=== PATIENT | male | born 1960 | race American Indian/Alaskan Native ===

== ENCOUNTER 2020-02-06 11:45 | Emergency (ER) | payer MEDICARE ==
[2020-02-06 11:50] VITALS: BP 165/93
--- NOTE | 2020-02-06 12:53 | Emergency Department Report ---
Abscess Boil HPI - HPI Chief Complaint: Skin/Abscess/Foreign Body Stated Complaint: BOIL ON BUTTOCKS Time Seen by Provider: 02/06/20 12:36 Duration: 3 Days History: Yes Pain, Yes Purulent Drainage, No Fever, No Numbness, No Foreign Body, No Previous History, No Insect Bite HPI: There is a pleasant 59-year-old male presents the emergency department chief complaint of a draining abscess on his buttocks. Patient reports has been present for the past few days reports that it drained a large amount of purulent drainage yesterday and is starting to feel better but he wanted to have it checked. He does have a history of diabetes and hypertension. He denies any associated fever, chills, night sweats, headache, dizziness, blurry vision, nausea,, diarrhea, chest pain, shortness of breath. Home Medications: Previous Rx's Medication Instructions Recorded Last Taken Type HYDROcodone/APAP 5-325 [[place] 1 each PO Q8HR PRN #14 tablet 07/20/13 Unknown Rx 5/325 mg] Lisinopril/Hydrochlorothiazide 1 tab PO QDAY #30 tablet 07/20/13 Unknown Rx [Zestoretic 10-12.5 mg] Sulfamethoxazole/Trimethoprim 1 each PO BID #14 tablet 07/20/13 Unknown Rx [Bactrim Ds] metFORMIN [Glucophage] 500 mg PO BID #60 tablet 07/20/13 Unknown Rx Clindamycin [Clindamycin CAP] 300 mg PO Q8H #30 cap 02/06/20 Unknown Rx Allergies/Adverse Reactions: Allergies Allergy/AdvReac Type Severity Reaction Status Date / Time No Known Allergies Allergy Unverified 07/20/13 10:39 ED Review of Systems ROS: Stated complaint: BOIL ON BUTTOCKS Other details as noted in HPI Comment: All other systems reviewed and negative Constitutional: denies: chills, fever Eyes: denies: eye pain, eye discharge, vision change ENT: denies: ear pain, throat pain Respiratory: denies: cough, shortness of breath, wheezing Cardiovascular: denies: chest pain, palpitations Endocrine: no symptoms reported Gastrointestinal: denies: abdominal pain, nausea, diarrhea Genitourinary: denies: urgency, dysuria Musculoskeletal: denies: back pain, joint swelling, arthralgia Skin: as per HPI. denies: rash, lesions Neurological: denies: headache, weakness, paresthesias Psychiatric: denies: anxiety, depression Hematological/Lymphatic: denies: easy bleeding, easy bruising ED Past Medical Hx - Past Medical History Previous Medical History?: Yes Hx Hypertension: Yes Hx Diabetes: Yes - Surgical History Past Surgical History?: Yes Additional Surgical History: right forearm. torn ligament right leg. left foot surgery - Social History Smoking Status: Current Every Day Smoker Substance Use Type: None - Medications Home Medications: Home Medications Medication Instructions Recorded Confirmed Last Taken Type HYDROcodone/APAP 5-325 [[place] 1 each PO Q8HR PRN #14 tablet 07/20/13 Unknown Rx 5/325 mg] Lisinopril/Hydrochlorothiazide 1 tab PO QDAY #30 tablet 07/20/13 Unknown Rx [Zestoretic 10-12.5 mg] Sulfamethoxazole/Trimethoprim 1 each PO BID #14 tablet 07/20/13 Unknown Rx [Bactrim Ds] metFORMIN [Glucophage] 500 mg PO BID #60 tablet 07/20/13 Unknown Rx Clindamycin [Clindamycin CAP] 300 mg PO Q8H #30 cap 02/06/20 Unknown Rx ED Abscess Boil Physical Exam - Exam General: Vital signs noted. No distress. Alert and acting appropriately. Size: 2 cm Exam: Yes Normal Neurologic Exam, Yes Normal Circulation, No Tenderness, No Fluctuance, No Surrounding Cellulites/Erythema, No Lymphangitis, No Crepitation, No Heart Murmur Exam: There is no fluctuance, there is a small area of a previous abscess that appears to have drained. He did not feel any surrounding fluctuance, crepitus, induration or tenderness palpation. There is no edema or erythema. ED Course Vital Signs 02/06/20 11:49 Temperature 98.5 F Pulse Rate 68 Respiratory 16 Rate Blood Pressure 165/93 O2 Sat by Pulse 98 Oximetry Critical care attestation.: If time is entered above; I have spent that time in minutes in the direct care of this critically ill patient, excluding procedure time. ED Medical Decision Making - Medical Decision Making The patient's abscess had already drained. I did offer to give antibiotics and recommended warm compresses or sits baths 5 minutes every hour and follow-up with his primary care doctor. Due to the location of the abscess I do think this could be pilonidal and recommend to the patient this could be a recurrent abscess so I did refer him to a surgeon if this was to recur. He verbalized understand the diagnosis, treatment plan and follow-up instructions all his questions were answered. - Differential Diagnosis abscess, cellulitis, abrasion ED Disposition Clinical Impression: Abscess Disposition: DC-01 TO HOME OR SELFCARE Is pt being admited?: No Condition: Stable Instructions: Abscess (ED) Prescriptions: Clindamycin [Clindamycin CAP] 300 mg PO Q8H #30 cap Referrals: DANIAL BETH MD [Staff Physician] - 3-5 Days Time of Disposition: 12:51
== END 2020-02-06 13:36 | disposition home or self-care (01) ==
LOC: ED 11:45
DX: L02.31 Cutaneous abscess of buttock (principal); I10 Essential (primary) hypertension; E11.9 Type 2 diabetes mellitus without complications; F17.200 Nicotine dependence, unspecified, uncomplicated; Z98.890 Other specified postprocedural states; Z79.84 Long term (current) use of oral hypoglycemic drugs; Z79.2 Long term (current) use of antibiotics; Z79.899 Other long term (current) drug therapy
CPT/HCPCS: 99281

== ENCOUNTER 2020-06-02 07:09 | Emergency (ER) | payer MEDICARE ==
[2020-06-02] MEDS ORDERED: SODIUM CHLORIDE 0.9% 1000 ML 1,000 ML ONE (07:15)
[2020-06-02] MEDS ORDERED: ONDANSETRON 4 MG/2 ML INJ IV ONE (07:26)
[2020-06-02] MEDS ORDERED: SODIUM CHLORIDE 0.9% 1000 ML 1,000 ML IV ONE (07:26)
--- NOTE | 2020-06-02 07:41 | Emergency Department Report ---
ED GI Bleed HPI - General Chief complaint: GI Bleed Stated complaint: GI BLEED Time Seen by Provider: 06/02/20 07:26 Source: patient, EMS Mode of arrival: Stretcher Limitations: No Limitations - History of Present Illness Initial comments: Chief complaint: Weakness, blood in stool HPI: This is a 60-year-old male with history of hypertension and diabetes mellitus who presents with generalized weakness and bloody stools. Patient's called 911. EMS found patient sitting on toilet bent over. Blood was seen on toilet seat and on bathroom floor. EMS discovered blood in the toilet. Blood pressure on scene 90/50. En route patient received 1500 mL of saline. Patient does not have a history of GI bleed. Patient does not take aspirin or anticoagulants. He does not take ibuprofen. He drinks alcohol sparingly. He does smoke tobacco. MD complaint: gross hematochezia -: Sudden, This morning Severity scale (0 -10): 0 Quality: painless Consistency: other (Constant bloody stools) Improves with: none Worsens with: none Context: other (No previous history) Associated Symptoms: vomiting (1 episode of vomiting), other (Weakness) - Related Data Previous Rx's Medication Instructions Recorded Last Taken Type HYDROcodone/APAP 5-325 [[place] 1 each PO Q8HR PRN #14 tablet 07/20/13 Unknown Rx 5/325 mg] Lisinopril/Hydrochlorothiazide 1 tab PO QDAY #30 tablet 07/20/13 Unknown Rx [Zestoretic 10-12.5 mg] Sulfamethoxazole/Trimethoprim 1 each PO BID #14 tablet 07/20/13 Unknown Rx [Bactrim Ds] metFORMIN [Glucophage] 500 mg PO BID #60 tablet 07/20/13 Unknown Rx Clindamycin [Clindamycin CAP] 300 mg PO Q8H #30 cap 02/06/20 Unknown Rx Allergies Allergy/AdvReac Type Severity Reaction Status Date / Time No Known Allergies Allergy Unverified 07/20/13 10:39 ED Review of Systems ROS: Stated complaint: GI BLEED Other details as noted in HPI Comment: All other systems reviewed and negative Constitutional: denies: fever, malaise Respiratory: denies: cough, shortness of breath Cardiovascular: denies: chest pain Gastrointestinal: vomiting, hematochezia. denies: abdominal pain, nausea ED Past Medical Hx - Past Medical History Previous Medical History?: Yes Hx Hypertension: Yes Hx Diabetes: Yes - Surgical History Past Surgical History?: Yes Additional Surgical History: right forearm. torn ligament right leg. left foot surgery - Social History Smoking Status: Current Every Day Smoker Substance Use Type: None - Medications Home Medications: Home Medications Medication Instructions Recorded Confirmed Last Taken Type HYDROcodone/APAP 5-325 [[place] 1 each PO Q8HR PRN #14 tablet 07/20/13 Unknown Rx 5/325 mg] Lisinopril/Hydrochlorothiazide 1 tab PO QDAY #30 tablet 07/20/13 Unknown Rx [Zestoretic 10-12.5 mg] Sulfamethoxazole/Trimethoprim 1 each PO BID #14 tablet 07/20/13 Unknown Rx [Bactrim Ds] metFORMIN [Glucophage] 500 mg PO BID #60 tablet 07/20/13 Unknown Rx Clindamycin [Clindamycin CAP] 300 mg PO Q8H #30 cap 02/06/20 Unknown Rx ED Physical Exam - General Limitations: No Limitations General appearance: alert, in no apparent distress, other (Appears pale but no acute distress) - Head Head exam: Present: atraumatic, normocephalic - Eye Eye exam: Present: normal appearance - ENT ENT exam: Present: mucous membranes moist - Neck Neck exam: Present: normal inspection, full ROM - Respiratory Respiratory exam: Present: normal lung sounds bilaterally. Absent: respiratory distress, wheezes, rales, rhonchi - Cardiovascular Cardiovascular Exam: Present: regular rate, normal rhythm, normal heart sounds. Absent: systolic murmur, diastolic murmur, rubs, gallop - GI/Abdominal GI/Abdominal exam: Present: soft. Absent: distended, tenderness, guarding, rebound - Rectal Rectal exam: Present: heme (+) stool, bloody stool, other (brick red soupy stool) - Extremities Exam Extremities exam: Present: normal inspection - Neurological Exam Neurological exam: Present: alert, oriented X3 - Psychiatric Psychiatric exam: Present: normal affect, normal mood - Skin Skin exam: Present: warm, dry, intact, normal color. Absent: rash ED Course Vital Signs 06/02/20 06/02/20 06/02/20 07:15 07:31 07:45 Temperature 97.9 F Pulse Rate 88 78 76 Respiratory 20 19 21 Rate Blood Pressure 100/64 145/76 139/78 Blood Pressure 100/64 [Left] O2 Sat by Pulse 95 94 95 Oximetry 06/02/20 06/02/20 06/02/20 07:59 08:30 08:45 Temperature Pulse Rate 74 73 Respiratory 20 25 H 24 Rate Blood Pressure 137/83 136/75 Blood Pressure [Left] O2 Sat by Pulse 95 94 98 Oximetry 06/02/20 06/02/20 06/02/20 09:00 09:15 09:30 Temperature Pulse Rate 75 74 77 Respiratory 16 20 19 Rate Blood Pressure 153/88 153/88 157/91 Blood Pressure [Left] O2 Sat by Pulse 99 100 100 Oximetry - Reevaluation(s) Reevaluation #1: 06/02/20 08:40 Upon reassessment, patient is normotensive without tachycardia. Reevaluation #2: 06/02/20 09:00 Vital Signs - 24 hr 06/02/20 06/02/20 06/02/20 07:15 07:31 07:45 Temperature 97.9 F Pulse Rate 88 78 76 Respiratory 20 19 21 Rate Blood Pressure 100/64 145/76 139/78 Blood Pressure 100/64 [Left] O2 Sat by Pulse 95 94 95 Oximetry 06/02/20 07:59 Temperature Pulse Rate Respiratory 20 Rate Blood Pressure Blood Pressure [Left] O2 Sat by Pulse 95 Oximetry ED Medical Decision Making - Lab Data Result diagrams: 06/02/20 07:31 06/02/20 07:31 - Radiology Data Radiology results: report reviewed Chest radiograph 1 view: No acute findings - Medical Decision Making This is a 58-year-old male with history of hypertension and diabetes mellitus who presents with weakness hypotension and hematochezia. Clinical impression: Lower GI bleed differential diagnosis includes diverticular bleed, internal hemorrhoids, malignancy No abdominal pain to indicate ischemia. No previous history of inflammatory bowel disease. Upon lab review hemoglobin is markedly decreased when compared to labs obtained in 2014. Patient hemoglobin at that time was 15.4 in 2014. Hemoglobin today is 9.8, hematocrit 29.7 normal platelet count. 177,000 CT abdomen pelvis: No acute findings, no significant abnormality of the bowel At 930: I spoke with our GI specialist Dr. Patel. He stated that endoscopy would not be available until Saturday. In his clinical expertise he recommended urgent endoscopy at least within the next 24 hours considering patient still bleeding. He is on-call at [facility]. He recommended transfer to that hospital for which he could perform endoscopy 9:40 a.m. I spoke with the charge nurse [facility]. The hospital was one total ER diversion. No capability to treat patient. 9:47 AM I [facility] Hospitalist total diversion. Outpatient endoscopy was a consideration offered. 10:16 I spoke with transfer nurse. All [facility] facilities were ER saturated. Transfer nurse agreed attempt to contact prenatal teacher for further assistance. I then spoke again with Dr. Thompson who considered outpatient endoscopy at [facility]. However he had great concern that transport would be precarious considering patient had active lower GI hemorrhage. 11:21 AM I spoke with Dr. Malin gastroenterology specialist at [facility]. She agreed to accept patient. She recommended hospitalist admission. 12:50 PM: I spoke with Dr. Mark Wharton hospitalist who accepted the patient to [facility]. Patient will be admitted to telemetry floor. Critical Care Time: Yes Critical care time in (mins) excluding proc time.: 100 Critical care attestation.: If time is entered above; I have spent that time in minutes in the direct care of this critically ill patient, excluding procedure time. 100 minutes of critical care time excluding procedures were used in the care of the patient. I came immediately to the bedside upon patient's arrival. I obtained history from EMS at the bedside. I discussed treatment plan with the nursing team members. I reviewed electronic record. Patient required multiple interventions and reassessments. I spoke with several healthcare workers and consultants in order to expedite care. ED Disposition Clinical Impression: Lower GI hemorrhage Disposition: DC/TX-70 ANOTHER TYPE HLTHCARE Is pt being admited?: No Does the pt Need Aspirin: No Condition: Stable Referrals: JERROD AYON III, [facility] [Primary Care Provider] - 3-5 Days Forms: Accompanied Note
[2020-06-02 07:47] LABS: Basophils % (Auto) 0.4 % (0.0-1.8); Eosinophils % (Auto) 0.3 % (0.0-4.3); Hematocrit 29.7 % (35.5-45.6); Hemoglobin 9.8 gm/dl (11.8-15.2); Lymphocytes # (Auto) 1.3 K/mm3 (1.2-5.4); Lymphocytes % (Auto) 12.6 % (13.4-35.0); Mean Corpuscular HGB Conc 33 % (32-34); Mean Corpuscular Volume 85 fl (84-94); Monocytes # (Auto) 0.5 K/mm3 (0.0-0.8); Monocytes % (Auto) 4.8 % (0.0-7.3); Platelet Count 177 K/mm3 (140-440); Red Blood Count 3.51 M/mm3 (3.65-5.03); Red Cell Distribution Width 15.3 % (13.2-15.2)
[2020-06-02 08:02] LABS: INR 1.12 (0.87-1.13)
--- NOTE | 2020-06-02 08:02 | XRay Report ---
CHEST 1 VIEW INDICATION: GI Bleed. COMPARISON: None FINDINGS: Support devices: None. Heart: Within normal limits. Lungs/Pleura: No acute air space or interstitial disease. Additional findings: None. IMPRESSION: No acute findings. Signer Name: Walter Elder Jr, MD Signed: 06/02/2020 7:57 AM Workstation Name: [id number]
[2020-06-02 08:03] LABS: Partial Thromboplastin Time 22.8 Sec. (24.2-36.6)
[2020-06-02 08:08] LABS: Alanine Aminotransferase 10 units/L (7-56); BUN/Creatinine Ratio 11; Blood Urea Nitrogen 15 mg/dL (9-20); Calcium 7.9 mg/dL (8.4-10.2); Hemolysis Index 6
--- NOTE | 2020-06-02 08:42 | Cat Scan Report ---
CT ABDOMEN AND PELVIS WITHOUT CONTRAST HISTORY: Hypotension, GI bleeding COMPARISON: None TECHNIQUE: Routine abdominal and pelvic CT exam performed without contrast. Lack of intravenous cont rast limits evaluation of the vascular and solid organs.. All CT scans at this location are performed using CT dose reduction for ALARA by means of automated exposure control. FINDINGS: CT ABDOMEN: Lung Bases: No significant abnormality. Liver: No significant abnormality. Biliary: No significant abnormality. Spleen: No significant abnormality. Unenlarged. Pancreas: No significant abnormality. Adrenals: No significant abnormality. Kidneys: There is a 9 mm stone in the lower pole of the left kidney. There is no ureteral stone or hy dronephrosis. Lymphatics: No lymphadenopathy. Vasculature: Atherosclerotic but nonaneurysmal abdominal aorta. Bowel/Peritoneum: No significant abnormality. No free air. No free fluid. Normal appendix. CT PELVIC: : No significant abnormality. Lymphatics: No lymphadenopathy. Osseous Structures: No aggressive appearing osseous lesions. Moderate diffuse spondylosis in the thor acolumbar spine. Additional Findings: None IMPRESSION: 1. No acute findings. 2. Nonobstructing left intrarenal stone. Signer Name: Fady Atkins MD Signed: 06/02/2020 8:37 AM Workstation Name: [id number]
[2020-06-02] MEDS: PANTOPRAZOLE 40 MG INJ IV STA ×2 (09:27→09:33)
[2020-06-02] MEDS ORDERED: POLYETHYLENE GLYCOL/ELECT SOLN 4000 ML PO STA (13:11)
[2020-06-02 16:59] VITALS: BP 137/82
[2020-06-02] MEDS ORDERED: POLYETHYLENE GLYCOL/ELECT SOLN 4000 ML PO SCH (22:00)
== END 2020-06-02 20:30 | disposition other institution (70) ==
LOC: ED 07:09
DX: K92.2 Gastrointestinal hemorrhage, unspecified (principal); R11.10 Vomiting, unspecified; I10 Essential (primary) hypertension; E11.9 Type 2 diabetes mellitus without complications; F17.200 Nicotine dependence, unspecified, uncomplicated; Z98.890 Other specified postprocedural states; Z79.84 Long term (current) use of oral hypoglycemic drugs; Z79.899 Other long term (current) drug therapy
CPT/HCPCS: 36415; 71045; 74176; 80053; 82962; 85025; 85610; 85730; 96361; 96374; 96375; 99291; 99292; C9113; J2405; J7030

== ENCOUNTER 2020-12-12 11:22 | Emergency (ER) | payer MEDICARE ==
[2020-12-12 12:01] VITALS: BP 183/93
[2020-12-12] MEDS ORDERED: MORPHINE 4 MG/1 ML INJ IV ONE (13:06)
[2020-12-12] MEDS ORDERED: ONDANSETRON 4 MG/2 ML INJ IV ONE (13:06)
[2020-12-12] MEDS ORDERED: SODIUM CHLORIDE 0.9% 1000 ML 1,000 ML IV ONE (13:06)
--- NOTE | 2020-12-12 14:13 | Emergency Department Report ---
- General Chief complaint: Skin/Abscess/Foreign Body Stated complaint: ABCESS Time Seen by Provider: 12/12/20 12:53 Source: patient Mode of arrival: Ambulatory Limitations: No Limitations - History of Present Illness Initial comments: This is a 60-year-old male nontoxic, well nourished in appearance, no acute signs of distress presents to the ED with c/o of redness and pain with swelling to left side of chest x several days. Patient stated has some pus or drainage. Patient denies any fever, chills, nausea, vomiting, chest pain, shortness of breath, headache or stiff neck. Patient denies any allergies. MD complaint: abscess/boil -: days(s) Location: chest Severity: mild Severity scale (0 -10): 8 Quality: aching Consistency: constant Improves with: none Worsens with: none Context: none Associated symptoms: denies other symptoms Treatments Prior to Arrival: none - Related Data Previous Rx's Medication Instructions Recorded Last Taken Type HYDROcodone/APAP 5-325 [[place] 1 each PO Q8HR PRN #14 tablet 07/20/13 Unknown Rx 5/325 mg] Lisinopril/Hydrochlorothiazide 1 tab PO QDAY #30 tablet 07/20/13 Unknown Rx [Zestoretic 10-12.5 mg] Sulfamethoxazole/Trimethoprim 1 each PO BID #14 tablet 07/20/13 Unknown Rx [Bactrim Ds] metFORMIN [Glucophage] 500 mg PO BID #60 tablet 07/20/13 Unknown Rx Clindamycin [Clindamycin CAP] 300 mg PO Q8H #30 cap 02/06/20 Unknown Rx Clindamycin [Clindamycin CAP] 300 mg PO Q8H #21 cap 12/12/20 Unknown Rx Allergies Allergy/AdvReac Type Severity Reaction Status Date / Time No Known Allergies Allergy Unverified 07/20/13 10:39 Abscess Boil HPI - HPI Chief Complaint: Skin/Abscess/Foreign Body Stated Complaint: ABCESS Time Seen by Provider: 12/12/20 12:53 Home Medications: Previous Rx's Medication Instructions Recorded Last Taken Type HYDROcodone/APAP 5-325 [[place] 1 each PO Q8HR PRN #14 tablet 07/20/13 Unknown Rx 5/325 mg] Lisinopril/Hydrochlorothiazide 1 tab PO QDAY #30 tablet 07/20/13 Unknown Rx [Zestoretic 10-12.5 mg] Sulfamethoxazole/Trimethoprim 1 each PO BID #14 tablet 07/20/13 Unknown Rx [Bactrim Ds] metFORMIN [Glucophage] 500 mg PO BID #60 tablet 07/20/13 Unknown Rx Clindamycin [Clindamycin CAP] 300 mg PO Q8H #30 cap 02/06/20 Unknown Rx Clindamycin [Clindamycin CAP] 300 mg PO Q8H #21 cap 12/12/20 Unknown Rx Allergies/Adverse Reactions: Allergies Allergy/AdvReac Type Severity Reaction Status Date / Time No Known Allergies Allergy Unverified 07/20/13 10:39 ED Review of Systems ROS: Stated complaint: ABCESS Other details as noted in HPI Comment: All other systems reviewed and negative Constitutional: denies: chills, fever Eyes: denies: eye pain, eye discharge, vision change ENT: denies: ear pain, throat pain Respiratory: denies: cough, shortness of breath, wheezing Cardiovascular: denies: chest pain, palpitations Endocrine: no symptoms reported Gastrointestinal: denies: abdominal pain, nausea, diarrhea Genitourinary: denies: urgency, dysuria Musculoskeletal: denies: back pain, joint swelling, arthralgia Skin: denies: rash, lesions Neurological: denies: headache, weakness, paresthesias Psychiatric: denies: anxiety, depression Hematological/Lymphatic: denies: easy bleeding, easy bruising ED Past Medical Hx - Past Medical History Hx Hypertension: Yes Hx Diabetes: Yes - Surgical History Additional Surgical History: right forearm. torn ligament right leg. left foot surgery - Social History Smoking Status: Current Every Day Smoker - Medications Home Medications: Home Medications Medication Instructions Recorded Confirmed Last Taken Type HYDROcodone/APAP 5-325 [[place] 1 each PO Q8HR PRN #14 tablet 07/20/13 Unknown Rx 5/325 mg] Lisinopril/Hydrochlorothiazide 1 tab PO QDAY #30 tablet 07/20/13 Unknown Rx [Zestoretic 10-12.5 mg] Sulfamethoxazole/Trimethoprim 1 each PO BID #14 tablet 07/20/13 Unknown Rx [Bactrim Ds] metFORMIN [Glucophage] 500 mg PO BID #60 tablet 07/20/13 Unknown Rx Clindamycin [Clindamycin CAP] 300 mg PO Q8H #30 cap 02/06/20 Unknown Rx Clindamycin [Clindamycin CAP] 300 mg PO Q8H #21 cap 12/12/20 Unknown Rx ED Physical Exam - General Limitations: No Limitations General appearance: alert, in no apparent distress - Head Head exam: Present: atraumatic, normocephalic - Eye Eye exam: Present: normal appearance - Neck Neck exam: Present: normal inspection, full ROM. Absent: lymphadenopathy - Respiratory Respiratory exam: Present: normal lung sounds bilaterally, chest wall tenderness (left redness and swelling about 10 cm x 8 cm with some purluent draiange). Absent: respiratory distress, wheezes, rales, rhonchi, stridor, accessory muscle use, decreased breath sounds, prolonged expiratory - Cardiovascular Cardiovascular Exam: Present: regular rate, normal rhythm, normal heart sounds. Absent: bradycardia, tachycardia, irregular rhythm, systolic murmur, diastolic murmur, rubs, gallop - GI/Abdominal GI/Abdominal exam: Present: soft, normal bowel sounds. Absent: distended, t enderness, guarding, rebound, rigid, diminished bowel sounds - Extremities Exam Extremities exam: Present: normal inspection, full ROM - Back Exam Back exam: Present: normal inspection, full ROM. Absent: tenderness, CVA t enderness (R), CVA tenderness (L), muscle spasm, paraspinal tenderness, vertebral tenderness, rash noted - Neurological Exam Neurological exam: Present: alert, oriented X3, normal gait - Psychiatric Psychiatric exam: Present: normal affect, normal mood - Skin Skin exam: Present: warm, dry, intact, normal color. Absent: rash ED Course Vital Signs 12/12/20 11:59 Temperature 98.7 F Pulse Rate 83 Respiratory 20 Rate Blood Pressure 183/93 O2 Sat by Pulse 100 Oximetry - Reevaluation(s) Reevaluation #1: 12/12/20 14:13 Patient is speaking in full sentences with no signs of distress noted. ED Medical Decision Making - Lab Data Result diagrams: 12/12/20 13:22 12/12/20 13:22 Lab Results 12/12/20 12/12/20 Range/Units 13:22 13:22 WBC 9.3 (4.5-11.0) K/mm3 RBC 4.63 (3.65-5.03) M/mm3 Hgb 9.7 L (11.8-15.2) gm/dl Hct 31.3 L (35.5-45.6) % MCV 68 L (84-94) fl MCH 21 L (28-32) pg MCHC 31 L (32-34) % RDW 19.7 H (13.2-15.2) % Plt Count 267 (140-440) K/mm3 Lymph % (Auto) 12.2 L (13.4-35.0) % Mcminn % (Auto) 7.1 (0.0-7.3) % Eos % (Auto) 0.4 (0.0-4.3) % Baso % (Auto) 0.5 (0.0-1.8) % Lymph # (Auto) 1.1 L (1.2-5.4) K/mm3 [place] # (Auto) 0.7 (0.0-0.8) K/mm3 Eos # (Auto) 0.0 (0.0-0.4) K/mm3 Baso # (Auto) 0.0 (0.0-0.1) K/mm3 Seg Neutrophils % 79.8 H (40.0-70.0) % Seg Neutrophils # 7.4 (1.8-7.7) K/mm3 Sodium 138 (137-145) mmol/L Potassium 3.4 L (3.6-5.0) mmol/L Chloride 101.1 (98-107) mmol/L Carbon Dioxide 27 (22-30) mmol/L Anion Gap 13 mmol/L BUN 12 (9-20) mg/dL Creatinine 1.1 (0.8-1.3) mg/dL Estimated GFR > 60 ml/min BUN/Creatinine Ratio 11 % Glucose 197 H (75-100) mg/dL Calcium 8.8 (8.4-10.2) mg/dL Total Bilirubin 0.60 (0.1-1.2) mg/dL AST 13 (5-40) units/L ALT 14 (7-56) units/L Alkaline Phosphatase 92 (35-129) units/L Albumin 3.8 L (3.9-5) g/dL - Radiology Data [facility] [address] [place] [address] Cat Scan Report Signed with Addenda Patient: ILEANA SANTANA MR#: [id number] [birth year] : 1960 Acct:[id number] Age/Sex: 60 / M ADM Date: 12/12/20 Loc: ED Attending Dr: Ordering Physician: LAM BETANCOURT NP Date of Service: 12/12/20 Procedure(s): CT chest w con Accession Number(s): [id number] cc: LAM BETANCOURT NP ADDENDUM There is a small complex subcutaneous collection likely representing an abscess in the left chest above the level of the nipple and measuring approximately 2.5 cm in diameter containing internal debris and air. There is mild surrounding soft tissue swelling and skin induration. Signer Name: Ken Nelson MD Signed: 12/12/2020 4:21 PM Workstation Name: [id number] Addendum Transcribed By: LAURA Addendum Dictated By: Ken Nelson MD Addendum Electronically Authenticated By: Ken Nelson MD Addendum Signed Date/Time: 12/12/201620 DD/ /23/1620 TD/TT: / CT chest with contrast INDICATION : left chest swelling and some driainge noted r/o ab OMNI 300 100 ML. TECHNIQUE: 100 mL of intravenous contrast administered. All CT scans at this location are performed using CT dose reduction for ALARA by means of automated exposure control. COMPARISON: CT abdomen from 06/02/2020 FINDINGS: There is advanced atherosclerotic disease within the coronary arteries with mild atherosclerotic disease in the aortic valve. Normal heart size. Trace pericardial effusion. No pathologic mediastinal adenopathy identified. The lungs are clear. Limited imaging of the upper abdomen shows mild adrenal thickening. Nothing acute. There are degenerative changes within the spine with nothing acute. Changes of DISH are also seen in the mid to lower thoracic spine. IMPRESSION: No acute abnormality. Clear lungs. Signer Name: Ken Nelson MD Signed: 12/12/2020 3:20 PM Workstation Name: [id number] Transcribed By: LAURA Dictated By: Ken Nelson MD Electronically Authenticated By: Ken Nelson MD Signed Date/Time: 12/12/20 1520 DD/ 1518 TD/TT: -- [Addendum Report Added by Ken Nelson MD at 2020-12-12 16:27:49] [facility] [address] [place] [address] Cat Scan Report Signed Patient: ILEANA SANTANA MR#: [id number] [birth year] : 1960 Acct:[id number] Age/Sex: 60 / M ADM Date: 12/12/20 Loc: ED Attending Dr: Ordering Physician: LAM BETANCOURT NP Date of Service: 12/12/20 Procedure(s): CT chest w con Accession Number(s): [id number] cc: LAM BETANCOURT NP CT chest with contrast INDICATION : left chest swelling and some driainge noted r/o ab OMNI 300 100 ML. TECHNIQUE: 100 mL of intravenous contrast administered. All CT scans at this location are performed using CT dose reduction for ALARA by means of automated exposure control. COMPARISON: CT abdomen from 06/02/2020 FINDINGS: Th ere is advanced atherosclerotic disease within the coronary arteries with mild atherosclerotic disease in the aortic valve. Normal heart size. Trace pericardial effusion. No pathologic mediastinal adenopathy identified. The lungs are clear. Limited imaging of the upper abdomen shows mild adrenal thickening. Nothing acute. There are degenerative changes within the spine with nothing acute. Changes of DISH are also seen in the mid to lower thoracic spine. IMPRESSION: No acute abnormality. Clear lungs. Signer Name: Ken Nelson MD Signed: 12/12/2020 3:20 PM Workstation Name: [id number] Transcribed By: LAURA Dictated By: Ken Nelson MD Electronically Authenticated By: Ken Nelson MD Signed Date/Time: 12/12/20 1520 DD/ 1518 TD/TT: - Medical Decision Making This is a 60-year-old male that presents with left chest wall abscess. Patient is stable and was examined by me. This is incision and drainage and has been performed and patient tolerated well. A sterile dressing has been applied. Patient was educated on proper wound care. Patient received Clinda IV. Patient is notified of the CT results with no questions noted by the patient. Patient received 20 M EQ potassium in the ER. Vital signs are stable. Labs are with no white count. Patient is discharged with Clinda. Patient was instructed to return in 2 days for packing removal. Patient was instructed to refer to Follow-up with a primary care doctor in 3-5 days or if symptoms worsen and continue return to emergency room as soon as possible. At time of discharge, the patient does not seem toxic or ill in appearance. No acute signs of distress noted. Patient agrees to discharge treatment plan of care. No further questions noted by the patient. Critical care attestation.: If time is entered above; I have spent that time in minutes in the direct care of this critically ill patient, excluding procedure time. ED Disposition Clinical Impression: Abscess, Encounter for incision and drainage procedure, Hypokalemia Disposition: TO HOME OR SELFCARE Is pt being admited?: No Does the pt Need Aspirin: No Condition: Stable Instructions: Skin Abscess, [id number] Additional Instructions: Follow-up with a primary care doctor in 3-5 days for repeat potassium levels or if symptoms worsen and continue return to emergency room as soon as possible. Return in 2 days for packing removal. Prescriptions: Clindamycin [Clindamycin CAP] 300 mg PO Q8H #21 cap Referrals: JERROD AYON III, APRN-BC [Primary Care Provider] - 3-5 Days PRIMARY MD ADOLFO [Referring] - 3-5 Days ELIZABETH PICKERING MD [Staff Physician] - 3-5 Days Forms: Work/School Release Form(ED) Time of Disposition: 16:48
[2020-12-12 14:17] LABS: Basophils % (Auto) 0.5 % (0.0-1.8); Eosinophils % (Auto) 0.4 % (0.0-4.3); Hematocrit 31.3 % (35.5-45.6); Hemoglobin 9.7 gm/dl (11.8-15.2); Lymphocytes # (Auto) 1.1 K/mm3 (1.2-5.4); Lymphocytes % (Auto) 12.2 % (13.4-35.0); Mean Corpuscular HGB Conc 31 % (32-34); Monocytes # (Auto) 0.7 K/mm3 (0.0-0.8); Monocytes % (Auto) 7.1 % (0.0-7.3); Platelet Count 267 K/mm3 (140-440); Red Blood Count 4.63 M/mm3 (3.65-5.03); Red Cell Distribution Width 19.7 % (13.2-15.2)
[2020-12-12 14:23] LABS: Mean Corpuscular Volume 68 fl (84-94)
[2020-12-12 14:29] LABS: Alanine Aminotransferase 14 units/L (7-56); Albumin 3.8 g/dL (3.9-5); BUN/Creatinine Ratio 11; Blood Urea Nitrogen 12 mg/dL (9-20); Calcium 8.8 mg/dL (8.4-10.2); Hemolysis Index 0
--- NOTE | 2020-12-12 15:25 | Cat Scan Report ---
CT chest with contrast INDICATION : left chest swelling and some driainge noted r/o ab OMNI 300 100 ML. TECHNIQUE: 100 mL of intravenous contrast administered. All CT scans at this location are performed using CT dose reduction for ALARA by means of automated exposure control. COMPARISON: CT abdomen from 06/02/2020 FINDINGS: There is advanced atherosclerotic disease within the coronary arteries with mild atheroscl erotic disease in the aortic valve. Normal heart size. Trace pericardial effusion. No pathologic medi astinal adenopathy identified. The lungs are clear. Limited imaging of the upper abdomen shows mild adrenal thickening. Nothing acute. There are degenera tive changes within the spine with nothing acute. Changes of DISH are also seen in the mid to lower t horacic spine. IMPRESSION: No acute abnormality. Clear lungs. Signer Name: Ken Nelson MD Signed: 12/12/2020 3:20 PM Workstation Name: [id number]
[2020-12-12] MEDS ORDERED: POTASSIUM CHLORIDE ER 20 MEQ TAB PO ONE (16:16)
== END 2020-12-12 17:00 | disposition home or self-care (01) ==
LOC: ED 11:22
DX: L02.213 Cutaneous abscess of chest wall (principal); E87.6 Hypokalemia; E11.8 Type 2 diabetes mellitus with unspecified complications; I10 Essential (primary) hypertension; F17.200 Nicotine dependence, unspecified, uncomplicated; Z98.890 Other specified postprocedural states
CPT/HCPCS: 10060; 36415; 71260; 80053; 85025; 96365; 96375; 99284; J2270; J2405; J7030; Q9967; 96361

== ENCOUNTER 2020-12-14 13:23 | Emergency (ER) | payer MEDICARE ==
[2020-12-14 13:53] VITALS: BP 194/87
--- NOTE | 2020-12-14 15:02 | Emergency Department Report ---
- General Chief complaint: Skin/Abscess/Foreign Body Stated complaint: REMOVE PACKING Time Seen by Provider: 12/14/20 14:40 Source: patient Mode of arrival: Ambulatory Limitations: No Limitations - History of Present Illness Initial comments: Patient is a 60-year-old male who presents emergency room with complaints of packing removal. He had I&D for a left chest wall abscess on 12/12/2020. He denies any increased swelling, increased pain, increased drainage, fever, chills, vomiting. He states he has been taking his antibiotics. PMHx DM and HTN No allergies to medications. - Related Data Previous Rx's Medication Instructions Recorded Last Taken Type HYDROcodone/APAP 5-325 [[place] 1 each PO Q8HR PRN #14 tablet 07/20/13 Unknown Rx 5/325 mg] Lisinopril/Hydrochlorothiazide 1 tab PO QDAY #30 tablet 07/20/13 Unknown Rx [Zestoretic 10-12.5 mg] Sulfamethoxazole/Trimethoprim 1 each PO BID #14 tablet 07/20/13 Unknown Rx [Bactrim Ds] metFORMIN [Glucophage] 500 mg PO BID #60 tablet 07/20/13 Unknown Rx Clindamycin [Clindamycin CAP] 300 mg PO Q8H #30 cap 02/06/20 Unknown Rx Clindamycin [Clindamycin CAP] 300 mg PO Q8H #21 cap 12/12/20 Unknown Rx Allergies Allergy/AdvReac Type Severity Reaction Status Date / Time No Known Allergies Allergy Unverified 07/20/13 10:39 Abscess Boil HPI - HPI Chief Complaint: Skin/Abscess/Foreign Body Stated Complaint: REMOVE PACKING Time Seen by Provider: 12/14/20 14:40 Home Medications: Previous Rx's Medication Instructions Recorded Last Taken Type HYDROcodone/APAP 5-325 [[place] 1 each PO Q8HR PRN #14 tablet 07/20/13 Unknown Rx 5/325 mg] Lisinopril/Hydrochlorothiazide 1 tab PO QDAY #30 tablet 07/20/13 Unknown Rx [Zestoretic 10-12.5 mg] Sulfamethoxazole/Trimethoprim 1 each PO BID #14 tablet 07/20/13 Unknown Rx [Bactrim Ds] metFORMIN [Glucophage] 500 mg PO BID #60 tablet 07/20/13 Unknown Rx Clindamycin [Clindamycin CAP] 300 mg PO Q8H #30 cap 02/06/20 Unknown Rx Clindamycin [Clindamycin CAP] 300 mg PO Q8H #21 cap 12/12/20 Unknown Rx Allergies/Adverse Reactions: Allergies Allergy/AdvReac Type Severity Reaction Status Date / Time No Known Allergies Allergy Unverified 07/20/13 10:39 ED Review of Systems ROS: Stated complaint: REMOVE PACKING Other details as noted in HPI Comment: All other systems reviewed and negative ED Past Medical Hx - Past Medical History Previous Medical History?: Yes Hx Hypertension: Yes Hx Diabetes: Yes - Surgical History Past Surgical History?: Yes Additional Surgical History: right forearm. torn ligament right leg. left foot surgery - Social History Smoking Status: Current Every Day Smoker - Medications Home Medications: Home Medications Medication Instructions Recorded Confirmed Last Taken Type HYDROcodone/APAP 5-325 [[place] 1 each PO Q8HR PRN #14 tablet 07/20/13 Unknown Rx 5/325 mg] Lisinopril/Hydrochlorothiazide 1 tab PO QDAY #30 tablet 07/20/13 Unknown Rx [Zestoretic 10-12.5 mg] Sulfamethoxazole/Trimethoprim 1 each PO BID #14 tablet 07/20/13 Unknown Rx [Bactrim Ds] metFORMIN [Glucophage] 500 mg PO BID #60 tablet 07/20/13 Unknown Rx Clindamycin [Clindamycin CAP] 300 mg PO Q8H #30 cap 02/06/20 Unknown Rx Clindamycin [Clindamycin CAP] 300 mg PO Q8H #21 cap 12/12/20 Unknown Rx ED Physical Exam - General Limitations: No Limitations General appearance: alert, in no apparent distress - Head Head exam: Present: atraumatic, normocephalic - Eye Eye exam: Present: normal appearance - Neurological Exam Neurological exam: Present: alert, oriented X3 - Psychiatric Psychiatric exam: Present: normal affect, normal mood - Skin Skin exam: Present: warm, dry, other (there is a 4 mm opening present to the left chest wall, small amount of packing removed, there is sebaceous like material able to be expressed, no erythema of the chest wall, no increased warmth) ED Course Vital Signs 12/14/20 13:52 Temperature 98.8 F Pulse Rate 74 Respiratory 16 Rate Blood Pressure 194/87 O2 Sat by Pulse 99 Oximetry ED Medical Decision Making - Medical Decision Making Patient is a 60-year-old male who presents emergency room with complaints of packing removal. He had I&D for a left chest wall abscess on 12/12/2020. He denies any increased swelling, increased pain, increased drainage, fever, chills, vomiting. He states he has been taking his antibiotics. PMHx DM and HTN No allergies to medications. on exam: there is a 4 mm opening present to the left chest wall, small amount of packing removed, there is sebaceous like material able to be expressed, no erythema of the chest wall, no increased warmth. A very small opening was placed during patient's I&D 2 days ago. This appears to be a sebaceous cyst as there is thick white/brownish thicker tissue like substance able to be expressed. Patient will need to be seen by a general surgeon for complete cyst removal and capsule removal. There is no signs of secondary infection at this time, no signs of cellulitis at this time, there is no foul odor, he is afebrile, no tachycardia. Patient given referral to general surgery. I discussed in detail with patient very strict return precautions. Dr. Pastrana, ER attending and agree meant with plan. Advised patient Please call the general surgeon today to set up an appointment. Please keep area clean, dry, covered. Do warm compresses 3 times a day. Wash with antibacterial soap and water pat dry. No hot tub, no pool, no soaking water. Please continue taking your antibiotics to completion. Return to emergency room immediately for any new or worsening symptoms including but not limited to worsening swelling, worsening redness, worsening drainage, fever, chills, vomiting, worsening pain, etc. Critical care attestation.: If time is entered above; I have spent that time in minutes in the direct care of this critically ill patient, excluding procedure time. ED Disposition Clinical Impression: Chest wall abscess, Abscess packing removal Disposition: DC-01 TO HOME OR SELFCARE Is pt being admited?: No Does the pt Need Aspirin: No Condition: Stable Instructions: Skin Abscess Additional Instructions: Please call the general surgeon today to set up an appointment. Please keep area clean, dry, covered. Do warm compresses 3 times a day. Wash with antibacterial soap and water pat dry. No hot tub, no pool, no soaking water. Please continue taking your antibiotics to completion. Return to emergency room immediately for any new or worsening symptoms including but not limited to worsening swelling, worsening redness, worsening drainage, fever, chills, vomiting, worsening pain, etc. Referrals: ILEANA CHRISTIANSON MD [Staff Physician] - 2-3 Days MASOUD CABRERA DO [Staff Physician] - 2-3 Days Time of Disposition: 15:04 Print Language: THAI
== END 2020-12-14 15:37 | disposition home or self-care (01) ==
LOC: ED 13:23
DX: L02.213 Cutaneous abscess of chest wall (principal); Z48.00 Encounter for change or removal of nonsurgical wound dressing; I10 Essential (primary) hypertension; E11.9 Type 2 diabetes mellitus without complications; F17.200 Nicotine dependence, unspecified, uncomplicated; Z98.890 Other specified postprocedural states; Z79.899 Other long term (current) drug therapy
CPT/HCPCS: 99282

== ENCOUNTER 2021-10-06 13:43 | Emergency (ER) | payer MEDICARE ==
[2021-10-06 14:09] VITALS: BP 155/91
--- NOTE | 2021-10-06 16:07 | Emergency Department Report ---
- General Chief complaint: Skin/Abscess/Foreign Body Stated complaint: ABCESS ON NECK Time Seen by Provider: 10/06/21 15:55 Source: patient Mode of arrival: Ambulatory Limitations: No Limitations - History of Present Illness Initial comments: 61-year-old -German male presents to the emergency room for a bump to his right side of his neck that is not painful for over a month. Patient has not followed up with a primary care provider as he says he has not seen one in a while. He denies any pain no fever no chills no drainage from the bump. complaint: lesion Onset/Timin -: month(s) Tetanus Up to Date: yes Location: neck (Right side) Severity scale (0 -10): 0 Associated symptoms: denies other symptoms - Related Data Previous Rx's Medication Instructions Recorded Last Taken Type HYDROcodone/APAP 5-325 [[place] 1 each PO Q8HR PRN #14 tablet 07/20/13 Unknown Rx 5/325 mg] Lisinopril/Hydrochlorothiazide 1 tab PO QDAY #30 tablet 07/20/13 Unknown Rx [Zestoretic 10-12.5 mg] Sulfamethoxazole/Trimethoprim 1 each PO BID #14 tablet 07/20/13 Unknown Rx [Bactrim Ds] metFORMIN [Glucophage] 500 mg PO BID #60 tablet 07/20/13 Unknown Rx Clindamycin [Clindamycin CAP] 300 mg PO Q8H #30 cap 02/06/20 Unknown Rx Clindamycin [Clindamycin CAP] 300 mg PO Q8H #21 cap 12/12/20 Unknown Rx Allergies Allergy/AdvReac Type Severity Reaction Status Date / Time No Known Allergies Allergy Unverified 07/20/13 10:39 Abscess Boil HPI - HPI Chief Complaint: Skin/Abscess/Foreign Body Stated Complaint: ABCESS ON NECK Time Seen by Provider: 10/06/21 15:55 Home Medications: Previous Rx's Medication Instructions Recorded Last Taken Type HYDROcodone/APAP 5-325 [[place] 1 each PO Q8HR PRN #14 tablet 07/20/13 Unknown Rx 5/325 mg] Lisinopril/Hydrochlorothiazide 1 tab PO QDAY #30 tablet 07/20/13 Unknown Rx [Zestoretic 10-12.5 mg] Sulfamethoxazole/Trimethoprim 1 each PO BID #14 tablet 07/20/13 Unknown Rx [Bactrim Ds] metFORMIN [Glucophage] 500 mg PO BID #60 tablet 07/20/13 Unknown Rx Clindamycin [Clindamycin CAP] 300 mg PO Q8H #30 cap 02/06/20 Unknown Rx Clindamycin [Clindamycin CAP] 300 mg PO Q8H #21 cap 12/12/20 Unknown Rx Allergies/Adverse Reactions: Allergies Allergy/AdvReac Type Severity Reaction Status Date / Time No Known Allergies Allergy Unverified 07/20/13 10:39 ED Review of Systems ROS: Stated complaint: ABCESS ON NECK Other details as noted in HPI Comment: All other systems reviewed and negative ED Past Medical Hx - Past Medical History Hx Hypertension: Yes Hx Diabetes: Yes - Surgical History Additional Surgical History: right forearm. torn ligament right leg. left foot surgery - Social History Smoking Status: Current Every Day Smoker - Medications Home Medications: Home Medications Medication Instructions Recorded Confirmed Last Taken Type HYDROcodone/APAP 5-325 [[place] 1 each PO Q8HR PRN #14 tablet 07/20/13 Unknown Rx 5/325 mg] Lisinopril/Hydrochlorothiazide 1 tab PO QDAY #30 tablet 07/20/13 Unknown Rx [Zestoretic 10-12.5 mg] Sulfamethoxazole/Trimethoprim 1 each PO BID #14 tablet 07/20/13 Unknown Rx [Bactrim Ds] metFORMIN [Glucophage] 500 mg PO BID #60 tablet 07/20/13 Unknown Rx Clindamycin [Clindamycin CAP] 300 mg PO Q8H #30 cap 02/06/20 Unknown Rx Clindamycin [Clindamycin CAP] 300 mg PO Q8H #21 cap 12/12/20 Unknown Rx ED Physical Exam - General Limitations: No Limitations General appearance: alert, in no apparent distress - Head Head exam: Present: atraumatic, normocephalic - Eye Eye exam: Present: normal appearance - ENT ENT exam: Present: mucous membranes moist - Neck Neck exam: Present: full ROM, other (Dime size bump that is nonerythematous none tenderness to touch ) - Respiratory Respiratory exam: Absent: respiratory distress - Cardiovascular Cardiovascular Exam: Present: regular rate - Extremities Exam Extremities exam: Present: normal inspection - Back Exam Back exam: Present: normal inspection - Neurological Exam Neurological exam: Present: alert, oriented X3, normal gait - Psychiatric Psychiatric exam: Present: normal affect, normal mood ED Course Vital Signs 10/06/21 14:07 Temperature 98.2 F Pulse Rate 72 Respiratory 18 Rate Blood Pressure 155/91 [Right] O2 Sat by Pulse 98 Oximetry ED Medical Decision Making - Medical Decision Making 61-year-old -German male presents to the emergency room for a bump to his right side of his neck that is not painful for over a month. Patient has not followed up with a primary care provider as he says he has not seen one in a while. He denies any pain no fever no chills no drainage from the bump. Patient has a bump that is been there for greater than 1 month on the right side of the neck. Its not emergent to address at this time. Patient can follow-up with a primary care provider or electrostatic painter. Critical care attestation.: If time is entered above; I have spent that time in minutes in the direct care of this critically ill patient, excluding procedure time. ED Disposition Clinical Impression: Skin lesion of neck Disposition: HOME / SELF CARE / HOMELESS Is pt being admited?: No Does the pt Need Aspirin: No Condition: Stable Additional Instructions: Recommend to follow-up with a electrostatic painter or your primary care provider. Referrals: [facility] [Provider Group] - 3-5 Days PRIMARY CAREMD [Primary Care Provider] - 3-5 Days SHRUTI WARD MD [Staff Physician] - 3-5 Days Time of Disposition: 16:07
== END 2021-10-06 16:24 | disposition home or self-care (01) ==
LOC: ED 13:43
DX: L98.9 Disorder of the skin and subcutaneous tissue, unspecified (principal); I10 Essential (primary) hypertension; E11.9 Type 2 diabetes mellitus without complications; F17.200 Nicotine dependence, unspecified, uncomplicated; Z79.899 Other long term (current) drug therapy
CPT/HCPCS: 99282

== ENCOUNTER 2021-11-17 11:59 | Emergency (ER) | payer MEDICARE ==
[2021-11-17 12:49] VITALS: BP 229/138
[2021-11-17] MEDS ORDERED: ASPIRIN 325 MG TAB PO ONE (12:53)
--- NOTE | 2021-11-17 13:30 | XRay Report ---
CHEST 2 VIEWS INDICATION: shoulder pain. Into COMPARISON: 06/02/2020. FINDINGS: Support devices: None. Heart: Within normal limits. Lungs/Pleura: No acute air space or interstitial disease. No significant pleural effusion. IMPRESSION: No acute findings. Signer Name: Boni Jones MD Signed: 11/17/2021 1:26 PM Workstation Name: [email or web address]
[2021-11-17 15:00] LABS: Basophils % (Auto) 0.7 % (0.0-1.8); Eosinophils % (Auto) 0.7 % (0.0-4.3); Hematocrit 42.3 % (35.5-45.6); Hemoglobin 14.2 gm/dl (11.8-15.2); Lymphocytes % (Auto) 21.7 % (13.4-35.0); Mean Corpuscular HGB Conc 34 % (32-34); Mean Corpuscular Volume 80 fl (84-94); Monocytes # (Auto) 0.4 K/mm3 (0.0-0.8); Monocytes % (Auto) 7.6 % (0.0-7.3); Red Blood Count 5.29 M/mm3 (3.65-5.03); Red Cell Distribution Width 15.8 % (13.2-15.2)
[2021-11-17 15:19] LABS: Platelet Count 207 K/mm3 (140-440)
[2021-11-17 15:23] LABS: Alanine Aminotransferase 16 units/L (7-56); Albumin 4.3 g/dL (3.9-5); BUN/Creatinine Ratio 11; Blood Urea Nitrogen 12 mg/dL (9-20); Calcium 9.4 mg/dL (8.4-10.2); Hemolysis Index 3
--- NOTE | 2021-11-18 11:22 | Electrocardiograph Report ---
[facility] Test Date: 2021-11-17 Test Time: 12:49:05 Pat Name: ILEANA SANTANA Department: Room: Gender: M [employer]: JERROD : 1960 Requested By: ED DOC Order Number: [id number] Reading MD: Joselito Epperson Measurements Intervals [place] Rate: 85 P: 60 IA: 209 QRS: -70 QRSD: 122 T: 57 QT: 420 QTc: 499 Interpretive Statements Sinus rhythm Probable left atrial enlargement NONSPECIFIC INTRAVENTRICULAR CONDUCTION DELAY poor r wave progression Electronically Signed On 11-18-2021 11:21:16 EDT by Joselito Epperson
== END 2021-11-18 03:45 | disposition left against medical advice (07) ==
LOC: ED 11:59
DX: M25.519 Pain in unspecified shoulder (principal); Z53.21 Procedure and treatment not carried out due to patient leaving prior to being seen by health care provider
CPT/HCPCS: 36415; 71046; 80053; 84484; 85025; 93005